=== PATIENT | female | born 2005 | race Caucasian/White ===

== ENCOUNTER 2023-05-17 19:52 | Emergency (ER) | payer BC ==
[~2023-05-17] VITALS: Ht 162.6 cm; Wt 61.4 kg
[2023-05-17 20:06] VITALS: TEMP 98.3
[2023-05-17 20:39] LABS: COLLECTION METHOD CLEAN CATCH
[2023-05-17 21:00] LABS: PH 8.5 (5.0-8.5); URINE APPEARANCE Hazy (CLEAR/HAZY); URINE COLOR Yellow (YELLOW); URINE PROTEIN(semi-quant) 2+ (NEGATIVE)
[2023-05-17 21:01] LABS: URINE BLOOD TRACE-INTACT (NEGATIVE); URINE GLUCOSE Negative (NEGATIVE); URINE KETONE Negative (NEGATIVE); URINE NITRATE Negative (NEGATIVE); URINE UROBILINOGEN 0.2 E.U/dL (0.2-1.0)
[2023-05-17 21:02] LABS: URINE BACTERIA Moderate /hpf (NONE SEEN)
[2023-05-17] MEDS ORDERED: CEPHALEXIN500 M1 PO (22:12)
[2023-05-17 22:34] VITALS: BP 114/73; PULSE 62
== END 2023-05-17 22:38 | disposition home or self-care (01) ==
LOC: COL.ER 19:52
PROVIDERS: Nurse Practitioner Primary Care
DX: N30.90 Cystitis, unspecified without hematuria (principal)
CPT/HCPCS: J0696